=== PATIENT | female | born 1970 | race African-American/Black ===

== ENCOUNTER 2019-11-12 05:18 | Day surgery (SDC) | payer OTHER ==
[~2019-11-12] VITALS: Ht 175.3 cm; Wt 191.9 kg
--- NOTE | ~2019-11-12 | OP ---
PATIENT NAME: ALEX GARLAND MEDICAL RECORD: [id number] :70 LOCATION:[facility] ADMISSION DATE: SURGEON: CELESTE PLASCENCIA MD DATE OF OPERATION: 11/12/2019 PREOPERATIVE DIAGNOSIS: Adhesive capsulitis of the right shoulder. POSTOPERATIVE DIAGNOSIS: Adhesive capsulitis of the right shoulder. PROCEDURE: Manipulation under anesthesia. SURGEON: Celeste Plascencia MD ANESTHESIA: General. INTRAOPERATIVE COMPLICATIONS: None. SUMMARY OF PATHOLOGIC FINDINGS: Consistent with preoperative diagnosis, the patient tightening in almost all ranges of motion. OPERATIVE SUMMARY IN DETAIL: After obtaining the appropriate preoperative orthopedic surgery consent as well as anesthetic consultation, evaluation and clearance, the patient was brought to the operating room and placed on the operating table in a supine position. After adequate general TIVA anesthesia was administered, the scapula was stabilized and abduction was carried out first with good release followed next by external rotation, flexion and then extension. Good range of motion was achieved with excellent release from the manipulation. The patient was awakened and taken back to outpatient in stable condition. TRANSINT:[id number] Voice Confirmation ID: [id number] DOCUMENT ID: [id number] CELESTE PLASCENCIA MD CC: [id number] DICTATION DATE: 11/22/19 1256 TECHNOLOGY OFFICER: 11/22/19 1443 [facility] 11/12/19 [id number] [place] [address]
[~2019-11-12 05:18] MED LIST: ALBUTEROL SULF8.5 GM INH; CATAPRES0.2 MG PO; CHLORTHALIDONE25 MG PO; EFFEXOR XR150 MG PO; FUROSEMIDE20 MG PO; GLUCOPHAGE1000 MG PO; K-TAB10 MEQ PO; KLONOPIN0.5 MG PO; METHOCARBAMOL500 MG PO; NEURONTIN600 MG PO; PEPCID AC20 MG PO; SINGULAIR10 MG PO; TENORMIN50 MG PO; VASOTEC20 MG PO; ZOFRAN8 MG PO; ZYRTEC10 MG PO
[2019-11-12 05:48] LABS: HEMOGLOBIN 11.7 g/dL (12-16); MCH 26.2 pg (26.0-34.0); MCHC 30.8 g/dL (31.0-37.0); MEAN PLATELET VOLUME 10.6 fL (7.4-10.4); RBC 4.47 10x6/uL (4.00-5.40); RDW 15.6 % (11.5-14.5)
[2019-11-12 05:55] LABS: ANION GAP 8.3 mmol/L (8-16); CALCIUM 9.3 mg/dL (8.5-10.1); CARBON DIOXIDE 31.2 mmol/L (21.0-32.0); CREATININE - SERUM 0.9 mg/dL (0.6-1.3); POTASSIUM - SERUM 3.5 mmol/L (3.5-5.1)
[2019-11-12 06:40] VITALS: BP 149/113; Ht 175.3 cm; Wt 191.9 kg
[2019-11-12] MEDS ORDERED: HYDROCODON-ACE1 EA10 PO (08:00)
== END 2019-11-12 10:30 | disposition home or self-care (01) ==
LOC: D.OPS 05:18
PROVIDERS: Anesthesiology; ATTEND Orthopaedic Surgery
DX: M25.572 Pain in left ankle and joints of left foot (principal); M25.511 Pain in right shoulder; S82.65XG Nondisplaced fracture of lateral malleolus of left fibula, subsequent encounter for closed fracture with delayed healing; M75.01 Adhesive capsulitis of right shoulder; E11.9 Type 2 diabetes mellitus without complications; Z79.84 Long term (current) use of oral hypoglycemic drugs